=== PATIENT | female | born 1975 | race American Indian/Alaskan Native ===

== ENCOUNTER 2019-03-22 09:05 | Emergency (ER) | payer OTHER ==
[~2019-03-22] VITALS: Ht 170.2 cm; Wt 77.1 kg
[~2019-03-22 09:05] MED LIST: AMOX500 PO; AMOX875 PO; CLINDAMYCIN PO; CYCL10 PO; DIPH50 PO; HYDACE5325 PO; HYDMOR2 PO; IBUP800 PO; KETO10 PO; Kristalose20 GM PO; LACT10SY PO; MAGCIT300 PO; NAPR500 PO; NAPR550 PO; Naprosyn500 MG PO; Norco 5-325 Ta1 EACH PO; OMEP20ER PO; OMEPRAZOLE20 MG PO; OXYACE5T PO; Omeprazole20 M1 PO; PROCODE120 PO; PROM25 PO; Pepcid40 MG PO; Percocet 5-3251 EACH PO; RANI150 PO; RXHYD5325 PO; TRAM50 PO; Zofran4 MG PO
== END 2019-03-22 11:52 | disposition home or self-care (01) ==
LOC: ER 09:05
DX: T78.40XA Allergy, unspecified, initial encounter (principal); R07.0 Pain in throat; K21.9 Gastro-esophageal reflux disease without esophagitis; F17.200 Nicotine dependence, unspecified, uncomplicated; Z88.1 Allergy status to other antibiotic agents; Z87.442 Personal history of urinary calculi
CPT/HCPCS: 70360; 99284-25; J1200

== ENCOUNTER 2022-02-12 18:47 | Emergency (ER) | payer OTHER ==
[~2022-02-12] VITALS: Ht 170.2 cm; Wt 77.1 kg
== END 2022-02-12 22:22 | disposition home or self-care (01) ==
LOC: ER 18:47
DX: S09.90XA Unspecified injury of head, initial encounter (principal); S00.01XA Abrasion of scalp, initial encounter; F17.200 Nicotine dependence, unspecified, uncomplicated; W22.09XA Striking against other stationary object, initial encounter
CPT/HCPCS: 70450; 90714; 99283-25; A9270

== ENCOUNTER 2023-08-27 21:25 | Emergency (ER) | payer OTHER ==
[~2023-08-27] VITALS: Ht 170.2 cm; Wt 81.7 kg
[2023-08-27 21:58] LABS: BASOPHILS ABSOLUTE AUTO 0.02 K/mm3 (0.00-0.23); BASOPHILS PERCENT AUTO 0 % (0-2); EOSINOPHILS ABSOLUTE AUTO 0.13 K/mm3 (0.00-0.68); EOSINOPHILS PERCENT AUTO 2 % (0-6); Hematocrit 44.1 % (33.0-51.0); Hemoglobin 14.7 g/dL (11.5-16.0); IMMATURE GRAN ABSOLUTE AUTO 0.02 K/mm3 (0.00-0.10); IMMATURE GRAN PERCENT AUTO 0 % (0-1); LYMPHOCYTES ABSOLUTE AUTO 3.22 K/mm3 (0.84-5.20); LYMPHOCYTES PERCENT AUTO 36 % (21-46); MONOCYTES ABSOLUTE AUTO 0.54 K/mm3 (0.16-1.47); MONOCYTES PERCENT AUTO 6 % (4-13); Mean Corpuscular HGB 30.7 pg (26.0-34.0); Mean Corpuscular HGB Conc 33.3 g/dL (31.5-36.5); Mean Corpuscular Volume 92 fL (80-100); Mean Platelet Volume 10.5 fL (9.1-12.4); NEUTROPHILS ABSOLUTE AUTO 4.91 K/mm3 (1.96-9.15); NEUTROPHILS PERCENT AUTO 56 % (41-73); Platelet Count 182 K/mm3 (150-400); RDW Coefficient Variation 12.8 % (11.7-14.2); RDW Standard Deviation 43.4 fL (35.1-46.3); Red Blood Cell Count 4.79 M/mm3 (3.80-5.20); White Blood Cell Count 8.84 K/mm3 (4.00-11.30)
[2023-08-27 22:17] LABS: Albumin/Globulin Ratio 1.2 (0.8-1.8); Bilirubin, Total 0.5 mg/dL (0.1-1.0); Bun/Creatinine Ratio 21.3 (12.0-20.0); Creatinine, Blood 0.56 mg/dL (0.40-1.00); Globulin, Blood 3.3 g/dL (2.2-4.0); Total Protein, Blood 7.3 g/dL (6.4-8.2)
[2023-08-27] MEDS ORDERED: FentaNYL Citrate 50 MCG/ML 2 ML Injection IV ONE (22:55)
[2023-08-27] MEDS ORDERED: Ondansetron HCl 2 MG / ML 2ML Vial IV ONE (22:55)
[2023-08-27] MEDS ORDERED: Aspirin 325 MG Tab PO ONE (22:55)
[2023-08-28 00:30] VITALS: BP 103/65
[2023-08-28] MEDS ORDERED: Ketorolac Tromethamine 30mg Vial IV ONE (00:35)
[2023-08-28] MEDS ORDERED: Cyclobenzaprine HCl 10 MG Tab PO ONE (00:35)
[2023-08-28] MEDS ORDERED: CYCL10 PO (00:38)
[2023-08-28] MEDS ORDERED: PRED20 PO (00:38)
[2023-08-28] MEDS ORDERED: NAPR500 PO (00:38)
== END 2023-08-28 00:52 | disposition home or self-care (01) ==
LOC: ER 21:25
PROVIDERS: Physician Assistant
DX: R07.89 Other chest pain (principal); K21.9 Gastro-esophageal reflux disease without esophagitis; F17.200 Nicotine dependence, unspecified, uncomplicated; Z88.1 Allergy status to other antibiotic agents
CPT/HCPCS: 71046; 80053; 84484; 85025; 93005; 93010; 96374; 96375; 99285-25; A9270; J1885; J2405; J3010

== ENCOUNTER 2023-11-03 21:54 | Emergency (ER) | payer OTHER ==
[~2023-11-03] VITALS: Ht 170.2 cm; Wt 83.9 kg
[~2023-11-03 21:54] MED LIST changes: +PRED20 PO
[2023-11-03 22:02] VITALS: BP 137/95
[2023-11-03] MEDS ORDERED: Ketorolac Tromethamine 10 MG Tab PO ONE (23:40)
== END 2023-11-03 23:53 | disposition home or self-care (01) ==
LOC: ER 21:54
DX: M25.512 Pain in left shoulder (principal); Z88.1 Allergy status to other antibiotic agents; Z79.899 Other long term (current) drug therapy; Z79.52 Long term (current) use of systemic steroids; K21.9 Gastro-esophageal reflux disease without esophagitis; G43.909 Migraine, unspecified, not intractable, without status migrainosus; F17.200 Nicotine dependence, unspecified, uncomplicated
CPT/HCPCS: 73030; 99283-25; A9270